=== PATIENT | female | born 1950 | race Hispanic/Latino ===

== ENCOUNTER → 2019-09-24 | Outpatient (CLI) | payer OTHER ==
[~2019-09-24] MED LIST: ACET1TAB12 PO; ANAS1TAB7 PO
== END | disposition home or self-care (01) ==
LOC: RAH 13:56
PROVIDERS: ATTEND Family Medicine
DX: C50.311 Malignant neoplasm of lower-inner quadrant of right female breast (principal)
CPT/HCPCS: 77065